=== PATIENT | female | born 1965 | race Caucasian/White ===

== ENCOUNTER 2021-07-02 11:38 | Emergency (ER) | payer SELFPAY ==
[~2021-07-02] VITALS: Ht 167.6 cm; Wt 104.5 kg
[2021-07-02 11:42] VITALS: BP 179/145
--- NOTE | 2021-07-02 12:15 | NUR ---
pt also states that she had covid last month and lately that her knees have been feeling weak
--- NOTE | 2021-07-02 13:57 | NUR ---
PT GIVEN CRACKERS AND JUICE.
--- NOTE | 2021-07-02 14:38 | NUR ---
Pt upset about the wait to be seen, "states she'll be dying of sepsis by the time they get here." Pt A&O x 3, PWD, ambulates to [facility]front director and back without assistance. No respiratory distress noted.
--- NOTE | 2021-07-02 14:41 | NUR ---
PA aware of situation.
[2021-07-02] MEDS ORDERED: TETanus/Pertussis (Acell)/Diphther VAC/PF (Tdap-Adult) 0.5ml syringe IMVAC ONE (15:10)
[2021-07-02] MEDS ORDERED: AMOX-117 PO (15:20)
== END 2021-07-02 15:25 | disposition home or self-care (01) ==
LOC: ER 11:39
DX: S61.412A Laceration without foreign body of left hand, initial encounter (principal); R50.9 Fever, unspecified; Z79.2 Long term (current) use of antibiotics; Z91.048 Other nonmedicinal substance allergy status; W54.0XXA Bitten by dog, initial encounter; Y93.89 Activity, other specified; Y92.89 Other specified places as the place of occurrence of the external cause; Y99.8 Other external cause status
CPT/HCPCS: 90471; 90715; 99283

== ENCOUNTER 2024-05-01 11:32 | Emergency (ER) | payer SELFPAY ==
[~2024-05-01] VITALS: Ht 167.6 cm; Wt 113.6 kg
[2024-05-01 11:39] VITALS: BP 152/98; PULSE 103; TEMP 98.5; O2SAT 97
[2024-05-01 12:47] LABS: ALANINE AMINOTRANSFERASE 30 U/L (12-78); ALBUMIN 3.7 G/DL (3.4-5.0); ALKALINE PHOSPHATASE 90 IU/L (46-116); ANION GAP 6 (8-16); ASPARTATE AMINO TRANSFERASE 19 U/L (10-37); BILIRUBIN,TOTAL 0.9 MG/DL (0.1-1.0); BLOOD UREA NITROGEN 10 MG/DL (7-18); BUN/CREATININE RATIO 12.2 (10.0-20.0); CALCIUM 9.1 MG/DL (8.5-10.1); CHLORIDE 101 MMOL/L (99-107); CREATININE 0.82 MG/DL (0.40-0.90); GLUCOSE 131 MG/DL (70-104); POTASSIUM 3.7 MMOL/L (3.5-5.1); SODIUM 138 MMOL/L (135-145); TOTAL CARBON DIOXIDE 31.1 MMOL/L (24-32); TOTAL PROTEIN 7.4 G/DL (6.4-8.2); eCRCL 67 ML/MIN; eGFR 71 ML/MIN
[2024-05-01 12:48] LABS: BASOPHILS # (AUTO) 0.1 X10'3 (0-0.2); BASOPHILS % (AUTO) 0.5 % (0-1); EOSINOPHILS # (AUTO) 0.1 X10'3 (0-0.9); EOSINOPHILS % (AUTO) 0.7 % (0-6); HEMATOCRIT 43.4 % (35.0-45.0); HEMOGLOBIN 14.5 g/dl (12.0-16.0); LYMPHOCYTES # (AUTO) 1.5 X10'3 (1.1-4.8); LYMPHOCYTES % (AUTO) 12.8 % (21-51); MEAN CORPUSCULAR HEMOGLOBIN 29.8 PG (27.0-31.0); MEAN CORPUSCULAR HGB CONC 33.3 g/dL (33.0-36.5); MEAN CORPUSCULAR VOLUME 89.5 FL (78-98); MEAN PLATELET VOLUME 8.5 FL (7.4-10.4); MONOCYTES # (AUTO) 0.8 X10'3 (0-0.9); NEUTROPHILS # (AUTO) 9.3 X10'3 (1.8-7.7); PLATELET COUNT 279 X10'3 (140-440); RED BLOOD COUNT 4.84 X10'6 (4.20-5.60); RED CELL DISTRIBUTION WIDTH 14.1 % (11.5-14.5); WHITE BLOOD COUNT 11.7 X10'3 (4.5-11.0)
[2024-05-01 12:55] LABS: PRO BRAIN NATRIURETIC PEPTIDE 176 PG/ML (0-125)
[2024-05-01 15:11] VITALS: RESP 22
== END 2024-05-01 17:05 | disposition home or self-care (01) ==
LOC: ER 11:33
DX: R10.12 Left upper quadrant pain (principal); R06.02 Shortness of breath; Z91.048 Other nonmedicinal substance allergy status; Z91.012 Allergy to eggs
CPT/HCPCS: 36415; 71045; 80053; 83880; 84484; 85025; 93005; 99285

== ENCOUNTER 2024-05-06 13:57 | Emergency (ER) | payer MEDICAID ==
[~2024-05-06] VITALS: Ht 167.6 cm; Wt 125.5 kg
[2024-05-06 14:07] VITALS: TEMP 97.8
[2024-05-06] MEDS: dexamethasone sod phosphate 10mg/ml inj IM ONE (15:55)
[2024-05-06] MEDS: ipratropium/albuterol 3ml nebule NEB ONE (16:44)
[2024-05-06 16:45] VITALS: PULSE 65; PULSE 70; RESP 18; RESP 20; O2SAT 100
[2024-05-06] MEDS ORDERED: ALBU8HFA INH (17:09)
[2024-05-06] MEDS ORDERED: PRED20TA PO (17:09)
[2024-05-06] MEDS ORDERED: AZIT250T83 PO (17:09)
[2024-05-06 17:16] VITALS: BP 145/88; PULSE 63; RESP 18; O2SAT 96
== END 2024-05-06 17:18 | disposition home or self-care (01) ==
LOC: ER 13:58
DX: R06.02 Shortness of breath (principal); R07.9 Chest pain, unspecified; J45.909 Unspecified asthma, uncomplicated; Z91.012 Allergy to eggs; Z88.8 Allergy status to other drugs, medicaments and biological substances
CPT/HCPCS: 94640; 96372; 99283; J1100; 94760